=== PATIENT | female | born 1960 | race Caucasian/White ===

== ENCOUNTER 2016-11-17 09:23 | Emergency (ER) | payer OTHER ==
[2016-11-17 09:30] VITALS: RESP 16; O2SAT 96
[2016-11-17] MEDS ORDERED: NS 1,000 ML IV ONE (09:55)
[2016-11-17 10:25] LABS: % IMMATURE GRANULYOCYTES 0.4 % (0.0-1.1); ABSOLUTE IMMATURE GRANULOCYTES 0.03 10^3/uL (0.00-0.10); ADD DIFF? NO; ADD MORPH? NO; ADD SCAN? NO; ATYPICAL LYMPHOCYTE FLAG 0 (0-99); FRAGMENT RBC FLAG 0 (0-99); HEMATOCRIT 41.4 % (38.0-47.0); HEMOGLOBIN 13.7 g/dL (12.6-16.3); LEFT SHIFT FLG 0 (0-99); LIPEMIA HEMOLYSIS FLAG 80 (0-99); MEAN CELL HEMOGLOBIN 28.5 pg (27.9-34.1); MEAN CELL HEMOGLOBIN CONCENTR. 33.1 g/dL (32.4-36.7); MEAN CELL VOLUME 86.3 fL (81.5-99.8); MEAN PLATELET VOLUME 9.7 fL (8.7-11.7); PLATELET CLUMPS FLAG 10 (0-99); PLATELET COUNT 305 10^3/uL (150-400); RED CELL DISTRIBUTION WIDTH 14.2 % (11.5-15.2)
[2016-11-17] MEDS ORDERED: GADOBUTROL 10 ML VIAL IVP ONE (10:33)
[2016-11-17 10:41] LABS: ANION GAP 12 mEq/L (8-16); CALCIUM 10.1 mg/dL (8.5-10.4); CARBON DIOXIDE 22 mEq/l (22-31); CHLORIDE 109 mEq/L (97-110); CREATININE 0.9 mg/dL (0.6-1.0); GLOMERULAR FILTRATION RATE > 60; GLUCOSE 136 mg/dL (70-100); POTASSIUM 3.8 mEq/L (3.5-5.2); SODIUM 143 mEq/L (134-144)
--- NOTE | 2016-11-17 10:43 | EDPHY ---
H & P Stated Complaint: RICKS dizzy for 3 days syncope 1 wk ago Time Seen by Provider: 11/17/16 09:36 HPI/ROS: CHIEF COMPLAINT: Dizziness, reported ataxia, vertigo HISTORY OF PRESENT ILLNESS: The patient presents to the ED with several week history of intermittent worsening vertigo, mild headache and reported intermittent ataxia. The patient has a complicated past medical history. She has had a chronic cough since February. She has been evaluated by pulmonology and undergone fiberoptic bronchoscopy without the diagnosis of obvious disease. Additionally, she has had a chronic sinus infection and is currently under the care of an ENT physician. She currently is treating that with daily saline irrigation and antihistamines. Two weeks ago the patient experience presyncope. There was no associated chest pain or dyspnea and the patient had no loss of consciousness. Over the past several days she has had recurrent presynope with vertigo. She denies neck pain /trauma or cervical manipulation. In the ED, she complaints of my nystagmus not worsened with head movement. REVIEW OF SYSTEMS: A comprehensive 10 point review of systems is otherwise negative aside from elements mentioned in the history of present illness. Source: Patient Exam Limitations: No limitations - Personal History Current Tetanus/Diphtheria Vaccine: Yes Current Tetanus Diphtheria and Acellular Pertussis (TDAP): Yes - Medical/Surgical History Hx Asthma: No Hx Chronic Respiratory Disease: No Hx Diabetes: Yes Hx Cardiac Disease: No Hx Renal Disease: No Hx Cirrhosis: No Hx Alcoholism: No Hx HIV/AIDS: No Hx Splenectomy or Spleen Trauma: No Other PMH: HTN, DM2, Anxiety, MS - Social History Smoking Status: Never smoked - Physical Exam Exam: General: NAD Head: NC/AT Eyes: Mild nystagumus noted with leftward gaze. ENT: Normal TM's Lungs: CTA Cardiac: RRR Abd: Soft, nontender Extremities: No calf TTP, Normal ROM Neuro: CN II-XII intact, 5/5 strength all 4 extremities, normal cerebellar function. Constitutional: Initial Vital Signs Temperature (C) 36.8 C 11/17/16 09:28 Heart Rate 103 H 11/17/16 09:28 Respiratory Rate 16 11/17/16 09:28 Blood Pressure 136/87 H 11/17/16 09:28 O2 Sat (%) 96 11/17/16 09:28 O2 Delivery Mode Room Air Allergies/Adverse Reactions: No Known Allergies Allergy (Unverified 11/17/16 09:30) Home Medications: Medication Instructions Recorded Meclizine HCl [Meclizine HCl 25 mg 25 mg PO BID PRN #20 tab 11/17/16 (RX,OTC)] Ondansetron Odt [Zofran Odt] 4 mg PO Q4PRN PRN #20 tab 11/17/16 Medical Decision Making ED Course/Re-evaluation: The patient presents to the ED with a variety of symptoms, some chronic and some acute. The primary complaint seems to surround vertigo today. Her examination does demonstrate some evidence of horizontal nystagmus with leftward gaze however her history has some features of central vertigo. Based upon her history of questionable MS, an MRI of the brain with and without contrast was ordered and it demonstrated no acute change from her prior MRI in April of 2016. The patient presents to the ED with symptoms which are likely most consistent with peripheral vertigo. MRI demonstrates no evidence of ischemia or mass or acute demyelinating illness to explain her symptoms. Patient is neurologically intact. I do feel the patient can continue to work with her primary care provider and neurologist for further evaluation for symptoms. The patient will be discharged from the emergency department with customary aftercare instructions and return precautions. Differential Diagnosis: Differential diagnosis considered includes peripheral vertigo, central vertigo, stroke, TIA, acute multiple sclerosis, metabolic abnormality - Data Points Laboratory Results: Laboratory Results 11/17/16 10:00 11/17/16 10:00 Medications Given: Discontinued Medications Sodium Chloride (Ns) 1,000 mls @ 0 mls/hr IV ONCE ONE PRN Reason: Wide Open Stop: 11/17/16 09:56 Last Admin: 11/17/16 11:16 Dose: 1,000 mls Departure - Departure Disposition: Home, Routine, Self-Care Clinical Impression: Vertigo Condition: Good Instructions: Vertigo (ED) Additional Instructions: 1. Please take meclizine as directed for dizziness. 2. Your MRI demonstrates no acute changes today. 3. I recommend following up with your regular ENT physician for any ongoing symptoms. 4. Zofran as needed for nausea. Referrals: Gayle Rubio MD [Primary Care Provider] - As per Instructions Jean-Pierre Ordonez MD [Medical Doctor] - As per Instructions Prescriptions: Meclizine HCl [Meclizine HCl 25 mg (RX,OTC)] 25 mg PO BID PRN #20 tab PRN Reason: for dizzyness Ondansetron Odt [Zofran Odt] 4 mg PO Q4PRN PRN #20 tab PRN Reason: For Nausea
[2016-11-17 12:55] VITALS: BP 143/96; PULSE 70; TEMP 97.5
== END 2016-11-17 12:54 | disposition home or self-care (01) ==
DX: R42 Dizziness and giddiness (principal); E11.9 Type 2 diabetes mellitus without complications; I10 Essential (primary) hypertension
CPT/HCPCS: A9585

== ENCOUNTER 2016-11-22 20:31 | Emergency (ER) | payer OTHER ==
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
[2016-11-22 21:10] VITALS: RESP 16
[2016-11-22 21:26] LABS: % IMMATURE GRANULYOCYTES 0.6 % (0.0-1.1); ABSOLUTE IMMATURE GRANULOCYTES 0.09 10^3/uL (0.00-0.10); ADD DIFF? NO; ADD MORPH? NO; ADD SCAN? NO; ATYPICAL LYMPHOCYTE FLAG 0 (0-99); FRAGMENT RBC FLAG 0 (0-99); HEMATOCRIT 46.3 % (38.0-47.0); LEFT SHIFT FLG 0 (0-99); LIPEMIA HEMOLYSIS FLAG 80 (0-99); MEAN CELL HEMOGLOBIN 28.2 pg (27.9-34.1); MEAN CELL HEMOGLOBIN CONCENTR. 32.4 g/dL (32.4-36.7); MEAN PLATELET VOLUME 10.3 fL (8.7-11.7); PLATELET CLUMPS FLAG 0 (0-99); PLATELET COUNT 411 10^3/uL (150-400); RED BLOOD CELL COUNT 5.32 10^6/uL (4.18-5.33); RED CELL DISTRIBUTION WIDTH 14.4 % (11.5-15.2)
[2016-11-22 21:34] LABS: ANION GAP 18 mEq/L (8-16); CALCIUM 10.5 mg/dL (8.5-10.4); CARBON DIOXIDE 18 mEq/l (22-31); CHLORIDE 106 mEq/L (97-110); CREATININE 0.9 mg/dL (0.6-1.0); ETHANOL SERUM 43 mg/dL (0-10); GLOMERULAR FILTRATION RATE > 60; GLUCOSE 114 mg/dL (70-100); POTASSIUM 3.9 mEq/L (3.5-5.2); SALICYLATE < 1.0 mg/dL (2.0-20.0); SODIUM 142 mEq/L (134-144)
[2016-11-22] MEDS ORDERED: NS 1,000 ML IV ONE (23:47)
[2016-11-23 07:17] VITALS: BP 133/84; PULSE 90; TEMP 98.1; O2SAT 94
== END 2016-11-23 07:32 | disposition home or self-care (01) ==
LOC: EDUNIT# → EEVIPCON 20:31
DX: T42.4X2A Poisoning by benzodiazepines, intentional self-harm, initial encounter (principal); F41.9 Anxiety disorder, unspecified; I10 Essential (primary) hypertension; E11.9 Type 2 diabetes mellitus without complications
CPT/HCPCS: 80305; G0480

== ENCOUNTER → 2016-12-08 | Outpatient (CLI) | payer OTHER | DX: R13.10 Dysphagia, unspecified (principal); G35 Multiple sclerosis | CPT/HCPCS: 92611-GN ==

== ENCOUNTER → 2017-09-22 | Outpatient (CLI) | payer OTHER | LOC: FIMAGING 09:27 | PROVIDERS: ATTEND Internal Medicine | DX: Z12.31 Encounter for screening mammogram for malignant neoplasm of breast (principal); Z80.3 Family history of malignant neoplasm of breast ==